=== PATIENT | female | born 1960 | race Caucasian/White ===

== ENCOUNTER 2017-09-27 09:17 | Emergency (ER) | payer OTHER, BC ==
[~2017-09-27] VITALS: Ht 160 cm; Wt 73.2 kg
[~2017-09-27 09:17] MED LIST: DIPH25CA37 PO
[2017-09-27 09:32] VITALS: TEMP 36.9; Ht 160 cm; Wt 73.2 kg
--- NOTE | 2017-09-27 10:25 | DIAGNOSTIC IMAGING REPORT ---
RIGHT ANKLE 3 VIEWS, RIGHT FOOT 3 VIEWS HISTORY: Right foot and ankle pain. Fall. COMPARISON: None. FINDINGS: No fracture or dislocation within the right ankle. Linear lucency through the anterior process of the calcaneus consistent with a nondisplaced fracture. Right ankle soft tissue swelling. Irregularity at the distal fifth metatarsal may be due to old postoperative change or old trauma. Mild osteoarthritis at the first MTP joint. Soft tissue bunion at the head of the first metatarsal. No radiopaque foreign bodies. IMPRESSION: 1. Small nondisplaced fracture through the tip of the anterior process of the calcaneus. 2. No fracture or dislocation within the right ankle. Electronically signed by: Júnior Goel M.D. 09/27/2017 10:24 AM Dictated Date/Time: 09/27/2017 10:16 AM
[2017-09-27] MEDS ORDERED: HYDR-5688 PO (10:55)
--- NOTE | 2017-09-27 10:55 | EMERGENCY ROOM VISIT NOTE ---
ED Visit Note First contact with patient: 09:36 CHIEF COMPLAINT: Right foot and ankle injury yesterday HISTORY OF PRESENT ILLNESS: Patient is a 56-year-old female who presents the emergency department for evaluation of right foot and ankle pain, swelling and bruising after an injury yesterday. She was walking down a few steps off of her deck and was carrying a watering can in both hands, when she missed the step , twisting the right foot and ankle. She has been using crutches and has not been able to bear weight on the ankle. She has applied ice, compression and taken Tylenol and ibuprofen. She does note that she has been having issues with plantar fasciitis and was recently prescribed physical therapy but has not begun this. Denies knee pain. REVIEW OF SYSTEMS: Review of systems as per HPI. All other systems reviewed were negative. At least 6 systems reviewed. PMH: Electronic medical records are reviewed and summarized as above/below. See Problem List. SOCIAL HISTORY: Patient lives at home with her spouse. Former smoker. PHYSICAL EXAM: Vital Signs: Reviewed Nurse's notes. MENTAL STATUS: Alert, oriented, and cooperative. MUSCULOSKELETAL: Examination of the right foot and ankle note marked ecchymosis, particularly over the lateral aspect of the ankle into the dorsal lateral aspect of the foot. She is primarily tender over the anterior lateral ankle, less tender over the lateral malleolus or the medial malleolus and minimal pain over the fifth metatarsal. Skin is intact and there is no ligamentous instability. No pain over the proximal fibular head. Lisfranc joint is negative. There is no deformity. The foot and toes are warm and well-perfused. Sensation to pain and light touch is intact. EMERGENCY DEPARTMENT COURSE: X-ray of the right foot and ankle were obtained, findings are consist with a fracture through the anterior process of the calcaneus. Short leg posterior Ortho-Glass splint was applied. Patient has crutches from a friend that she is confident that she can keep. She was encouraged to follow-up with [facility] for further care and management of her fracture. Medication reconciliation: I attest that I have personally reviewed the patient' s current medication list. Blood pressure screening: Patient was found to have a slightly elevated blood pressure due to circumstances. I do not believe that the patient requires hypertension monitoring. Differential diagnosis include foot verses ankle sprain/fracture, contusion, dislocation. RIGHT ANKLE 3 VIEWS, RIGHT FOOT 3 VIEWS HISTORY: Right foot and ankle pain. Fall. COMPARISON: None. FINDINGS: No fracture or dislocation within the right ankle. Linear lucency through the anterior process of the calcaneus consistent with a nondisplaced fracture. Right ankle soft tissue swelling. Irregularity at the distal fifth metatarsal may be due to old postoperative change or old trauma. Mild osteoarthritis at the first MTP joint. Soft tissue bunion at the head of the first metatarsal. No radiopaque foreign bodies. IMPRESSION: 1. Small nondisplaced fracture through the tip of the anterior process of the calcaneus. 2. No fracture or dislocation within the right ankle. Problem List Medical Problems: (1) Abdominal pain Status: Resolved Surgical Problems: (1) S/P colonoscopic polypectomy Status: Resolved Current/Historical Medications Scheduled PRN Hydrocodone/Acetaminophen 5MG/325MG ([place] 5MG/325MG), 1-2 TABLETS PO Q4 PRN for Pain Allergies Coded Allergies: No Known Allergies (Unverified , 09/27/17) Vital Signs Date Time Temp Pulse Resp B/P (MAP) Pulse Ox O2 Delivery O2 Flow Rate FiO2 09/27/17 11:41 76 18 160/75 97 Room Air 09/27/17 09:32 36.9 85 18 167/84 97 Room Air Departure Information Impression Primary Impression: Right calcaneal fracture Prescriptions Hydrocodone/Acetaminophen 5MG/325MG ([place] 5MG/325MG) Tab 1-2 TABLETS PO Q4 Y for Pain, #20 TAB For Initial Treatment Prov: Megha River PA 09/27/17 Referrals Tona Zacarias M.D. (PCP) Patient Instructions [facility] Additional Instructions Hydrocodone/Acetaminophen ([place]) 5/325 mg: Take 1-2 pills every four hours for breakthrough pain. Avoid alcohol, operating machinery or dangerous equipment, working on ladders or roofs, DRIVING, or situations where being under the influence may be dangerous. It is recommended to use an [id number] stool softener such as Colace, 100mg twice daily while taking this medication to avoid constipation. Ibuprofen(Motrin, Advil) may be used for fever or pain. Use 600mg every six hours as needed. Take with food. Avoid using more than 2400mg in a 24 hour period. Do not use 2400mg per day for more than three consecutive days without physician direction. Prolonged inappropriate use can lead to stomach upset or ulcers. This medication can be taken if you need to drive, work, or perform activities which may be dangerous when taking narcotic pain medication. (AND/OR) Acetaminophen(Tylenol) may be used for fever or pain. Use 1000mg every six hours as needed. Avoid using more than 3000mg in a 24 hour period. This medication can be taken if you need to drive, work, or perform activities which may be dangerous when taking narcotic pain medication. Ice compresses for 20 minutes at a time four times daily for 2-3 days. Use the crutches as instructed with no weight on the right leg. Rest and elevate your injury. Do not get the splint wet. If your splint feels excessively tight, you have worsening pain, develop numbness or tingling, or your digits appear blue, loosen the laisha wrap. Then reapply the laisha wrap gently without removing the splint. If your symptoms are not quickly relieved return to the ER for re- evaluation. Continue current medications. Return to the ER immediately for any numbness, tingling, severe pain, extreme swelling in the extremity or as needed. Call [facility] on Saturday to arrange follow up for your injury.
[2017-09-27 11:41] VITALS: BP 160/75; PULSE 76; O2SAT 97
== END 2017-09-27 11:44 | disposition home or self-care (01) ==
LOC: C.EDB 09:18
DX: S92.001A Unspecified fracture of right calcaneus, initial encounter for closed fracture (principal); X50.0XXA Overexertion from strenuous movement or load, initial encounter; R03.0 Elevated blood-pressure reading, without diagnosis of hypertension; Z87.891 Personal history of nicotine dependence